=== PATIENT | male | born 1975 | race Caucasian/White ===

== ENCOUNTER 2020-12-25 18:52 | Emergency (ER) | payer BC ==
[2020-12-26 19:43] LABS: SARS-CoV-2 PCR by NAA DETECTED (NotDetected)
== END 2020-12-25 20:08 | disposition home or self-care (01) ==
LOC: MADERS 18:52
DX: U07.1 COVID-19 (principal); F17.220 Nicotine dependence, chewing tobacco, uncomplicated; E11.9 Type 2 diabetes mellitus without complications; Z79.84 Long term (current) use of oral hypoglycemic drugs; Z79.899 Other long term (current) drug therapy
CPT/HCPCS: 99283; U0003; U0005